=== PATIENT | male | born 1970 | race Caucasian/White ===

== ENCOUNTER 2018-04-07 11:02 | Emergency (ER) | payer OTHER ==
[~2018-04-07] VITALS: Ht 177.8 cm; Wt 83.5 kg
[2018-04-07] MEDS ORDERED: NORCO 5-325 TA1 EACH PO (14:01)
[2018-04-07 14:25] VITALS: BP 141/90
== END 2018-04-07 14:48 | disposition home or self-care (01) ==
LOC: ER 11:02
DX: S52.511A Displaced fracture of right radial styloid process, initial encounter for closed fracture (principal); Z87.891 Personal history of nicotine dependence; Z88.1 Allergy status to other antibiotic agents; V18.0XXA Pedal cycle driver injured in noncollision transport accident in nontraffic accident, initial encounter; Y93.89 Activity, other specified; Y92.89 Other specified places as the place of occurrence of the external cause; Y99.8 Other external cause status